=== PATIENT | female | born 1945 | race Caucasian/White ===

== ENCOUNTER 2020-05-16 08:46 | Observation (INO) | payer OTHER ==
[2020-05-16] VITALS (13 sets, daily range): BP systolic 125–162; BP diastolic 41–76
[~2020-05-16] VITALS: Ht 157.5 cm; Wt 95.3 kg
[2020-05-16] MEDS ORDERED: diphenhydrAMINE 25mg capsule PO PRN (09:10)
[2020-05-16] MEDS ORDERED: RIVA20TA PO (09:25)
[2020-05-16] MEDS ORDERED: LISI40TA4 PO (09:25)
[2020-05-16] MEDS ORDERED: LEVO88TA7 PO (09:25)
[2020-05-16] MEDS ORDERED: CARV25TA2 PO (09:25)
[2020-05-16] MEDS ORDERED: ATOR20TA66 PO (09:25)
[2020-05-16] MEDS ORDERED: METF-438 PO (09:25)
[2020-05-16] MEDS ORDERED: ADV50250 INH (09:25)
[2020-05-16] MEDS ORDERED: HYDR25TA4 PO (09:25)
[2020-05-16] MEDS ORDERED: SITA100T15 PO (09:25)
[2020-05-16] MEDS ORDERED: AMLO5TAB16 PO (09:25)
[2020-05-16] MEDS ORDERED: MULT-1085 PO (09:26)
[2020-05-16 09:44] LABS: BASOPHILS # (AUTO) 0.1 X10'3 (0-0.2); BASOPHILS % (AUTO) 1.2 % (0-1); EOSINOPHILS # (AUTO) 0.5 X10'3 (0-0.9); EOSINOPHILS % (AUTO) 5.4 % (0-6); HEMOGLOBIN 12.9 g/dl (12.0-16.0); LYMPHOCYTES # (AUTO) 1.6 X10'3 (1.1-4.8); LYMPHOCYTES % (AUTO) 18.7 % (21-51); MEAN CORPUSCULAR HEMOGLOBIN 29.8 PG (27.0-31.0); MEAN CORPUSCULAR VOLUME 90.3 FL (78-98); MEAN PLATELET VOLUME 8.7 FL (7.4-10.4); MONOCYTES # (AUTO) 0.6 X10'3 (0-0.9); MONOCYTES % (AUTO) 7.1 % (2-12); NEUTROPHILS # (AUTO) 5.9 X10'3 (1.8-7.7); NEUTROPHILS % (AUTO) 67.6 % (42-75); PLATELET COUNT 321 X10'3 (140-440); RED BLOOD COUNT 4.31 X10'6 (4.20-5.60); RED CELL DISTRIBUTION WIDTH 14.2 % (11.5-14.5); WHITE BLOOD COUNT 8.7 X10'3 (4.5-11.0)
[2020-05-16 09:52] LABS: ALBUMIN 4.1 G/DL (3.4-5.0); ANION GAP 10 (8-16); BLOOD UREA NITROGEN 32 MG/DL (7-18); BUN/CREATININE RATIO 31.1 (6.6-38.0); CALCIUM 9.4 MG/DL (8.5-10.1); CHLORIDE 101 MMOL/L (99-107); CREATININE 1.03 MG/DL (0.40-0.90); GLUCOSE 219 MG/DL (70-104); MAGNESIUM 1.7 MG/DL (1.5-2.4); POTASSIUM 4.2 MMOL/L (3.5-5.1); SODIUM 137 MMOL/L (135-145); TOTAL CARBON DIOXIDE 26.5 MMOL/L (24-32); eGFR 52 ML/MIN
[2020-05-16] MEDS ORDERED: midazolam 2 mg/2 ml injection ONE ×2 (11:06→12:49)
[2020-05-16] MEDS ORDERED: fentaNYL/PF 50MCG/1 ML 2ML syringe ONE (11:06)
[2020-05-16] MEDS ORDERED: heparin 1,000unit/ml 10ml vial 10 ML ONE (11:07)
[2020-05-16] MEDS ORDERED: iohexol 350 MG/ML 50ML vial IV ONE ×2 (11:07→12:48)
[2020-05-16] MEDS ORDERED: LIDOcaine 1% (10mg/ml)w/preservative injection 20ml MDV ONE (11:07)
[2020-05-16] MEDS ORDERED: iohexol 350MG/ML 100ml bottle IV ONE ×2 (11:07→12:39)
[2020-05-16] MEDS ORDERED: nitroGLYCERIN-Tridil 50MG/D5W 250 ML IV ONE (12:53)
[2020-05-16] MEDS ORDERED: clopidogrel 300mg tablet ONE (13:02)
[2020-05-16] MEDS ORDERED: nitroGLYCERIN 0.4mg SUBLingual tab SL ONE (13:04)
[2020-05-16] MEDS ORDERED: mag hydrox/Alum hydrox/simeth 30ml oral suspension PO ONE (13:35)
--- NOTE | 2020-05-16 13:45 | NUR ---
SL nitro x3 administered by lab support technician RN during transport from lab support technician to short stay unit.
[2020-05-16] MEDS: morphine 2 MG/ML inj. syringe IV PRN ×2 (14:05→19:57)
--- NOTE | 2020-05-16 14:15 | NUR ---
Dr. Nguyen at bedside to evaluate pt's hematoma and chest pain. Orders received for maalox & morphine.
--- NOTE | 2020-05-16 15:15 | NUR ---
Dr. Nguyen at bedside during vascular US. Area of bleed identified, femstop applied. Orders received to admit pt to ACCE unit overnight for observation.
[2020-05-16] MEDS ORDERED: ondansetron/PF 4mg/2ml inj ONE (15:29)
[2020-05-16] MEDS ORDERED: ondansetron/PF 4mg/2ml inj IV ONE (15:35)
--- NOTE | 2020-05-16 17:18 | NUR ---
Report called to MIC Duncan on ACCE unit. Receiving RN had opportunity to ask questions. Will transport pt to [facility] room 315 after releasing femstop per protocol. Addendum: 05/16/20 at 1752 by Bisi Byers RN Transferred pt and [facility] belongings [facility]. Pt in no acute distress at time of transfer.
--- NOTE | 2020-05-16 19:04 | NUR ---
PT COMPLAINING OF 3 OUT OF 10 CP, PERFORMING STAT EKG NOW.
[2020-05-16] MEDS ORDERED: budesonide 0.5mg/2ml UD nebule IH SCH (20:00)
[2020-05-16] MEDS ORDERED: albuterol 2.5 MG/3 ML nebule NEB PRN (20:40)
--- NOTE | 2020-05-16 21:25 | NUR ---
SPOKE WITH DR MONTALVO ABOUT PTS CP AND STAT EKG PERFORMED. DR MONTALVO ORDERED PT FULL CODE, TO LEAVE FEMSTOP INFLATED WITH LOW PRESSURE, PT TO LIE FLAT WITH HOB UP TO [address] MONTALVO ALSO ORDERED ZOFRAN AND NORCO FOR PT WELL.
[2020-05-16] MEDS ORDERED: ondansetron/PF 4mg/2ml inj IV PRN (21:35)
[2020-05-16] MEDS ORDERED: HYDROcodone/acetaminophen 5mg/325mg tablet PO PRN (21:35)
[2020-05-16] MEDS: carVEDilol 12.5mg tablet PO SCH (22:53)
[2020-05-17 02:00] VITALS: BP 130/49
[2020-05-17 06:00] VITALS: BP 123/46
--- NOTE | 2020-05-17 07:48 | NUR ---
Patient in room MED 314. I have received report from MIC Trujillo and had the opportunity to ask questions and assume patient care.
[2020-05-17] MEDS ORDERED: levoTHYROXINE 88mcg tablet PO SCH (08:00)
[2020-05-17] MEDS ORDERED: lisinopril 20mg tablet PO SCH (08:00)
[2020-05-17] MEDS ORDERED: HYDROchlorothiazide 25mg tablet PO SCH (08:00)
[2020-05-17] MEDS ORDERED: amLODIPine 5mg tablet PO SCH (08:00)
[2020-05-17] MEDS ORDERED: rivaroxaban 20mg tablet PO SCH (08:00)
[2020-05-17] MEDS ORDERED: multivitamins, therapeutics tablet PO SCH (08:00)
[2020-05-17] MEDS ORDERED: atorvastatin 20mg tablet PO SCH (08:00)
[2020-05-17] MEDS: carVEDilol 12.5mg tablet PO SCH (09:32)
[2020-05-17 11:00] VITALS: BP 106/87
[2020-05-17] MEDS ORDERED: CLOP75TA34 PO (14:31)
--- NOTE | 2020-05-17 18:49 | NUR ---
pt. discharged from facility at 1530. pt. was wheeled out by staff and picked up by family. pt. signed and understood all paperwork and instructions were also given to her family. pt. new meds were called into [facility] in [facility]. pt. IV was d/c intact. pt. understands she needs to make f/u appointments with the doctor. pt. left with all belongings.
[2020-05-19] MEDS ORDERED: metFORMIN 500mg tablet PO SCH (08:00)
[2020-05-19] MEDS ORDERED: rivaroxaban 20mg tablet PO SCH (08:00)
== END 2020-05-17 15:30 | disposition home or self-care (01) ==
LOC: SSTAY O 08:46 → MED 3N 19:00
PROVIDERS: ADMIT Internal Medicine Cardiovascular Disease; ATTEND Internal Medicine Cardiovascular Disease
DX: I25.118 Atherosclerotic heart disease of native coronary artery with other forms of angina pectoris (principal); I27.20 Pulmonary hypertension, unspecified; E11.9 Type 2 diabetes mellitus without complications; I10 Essential (primary) hypertension; E78.5 Hyperlipidemia, unspecified; I48.0 Paroxysmal atrial fibrillation; J45.909 Unspecified asthma, uncomplicated; E03.9 Hypothyroidism, unspecified; Z95.0 Presence of cardiac pacemaker; Z95.5 Presence of coronary angioplasty implant and graft; Z79.84 Long term (current) use of oral hypoglycemic drugs; Z79.82 Long term (current) use of aspirin; Z79.01 Long term (current) use of anticoagulants; Z79.899 Other long term (current) drug therapy; Z88.5 Allergy status to narcotic agent; Z88.8 Allergy status to other drugs, medicaments and biological substances; Z91.018 Allergy to other foods
CPT/HCPCS: 36415; 80048; 82948; 83735; 85025; 85610; 92920; 93005; 93460; 93926; 94760; 96374; 96375; 96376; C1725; C1751; C1760; C1769; C1894; G0378; J1644; J2001; J2250; J2270; J2405; J3010; Q0163; Q9967; 99152; 99153; A4620; A6258; J3490